=== PATIENT | female | born 1970 | race African-American/Black ===

== ENCOUNTER 2017-11-24 10:15 | Observation (INO) ==
[2017-11-24] MEDS ORDERED: ASPIRIN 325 MG TABLET PO STA (10:32)
[2017-11-24] MEDS ORDERED: NITROGLYCERIN SL 0.4 MG TABLET SL PRN (10:32)
[2017-11-24 10:51] LABS: Eosinophils # 0.2 10*3/uL (0.0-0.87); Eosinophils % 2.8 % (0.00-10.9); Hematocrit 41.1 VOL% (35.7-47.0); Hemoglobin 13.8 GM/DL (12.0-16.0); Immature Granulocytes % 0.2 %; Immature Granulocytes Absolute 0.01 #; Lymphocytes # 2.7 10*3/uL (1.4-4.0); Lymphocytes % 44.8 % (21.3-54.2); Mean Corpuscular HGB Conc 33.6 GM/DL (32-36); Mean Corpuscular Hemoglobin 28 PG (27-34); Mean Corpuscular Volume 84.2 FL (87-102); Mean Platelet Volume 9.7 FL (9.6-12.0); Monocytes # 0.5 10*3/uL (0.11-0.8); Monocytes % 8.7 % (1.7-12.7); Neutrophils # 2.7 10*3/uL (1.4-7.4); Neutrophils % 43.5 % (38.7-73.9); Platelet Count 386 T/CUMM (130-400); Red Blood Count 4.88 MC/CUMM (3.8-5.5); Red Cell Distribution Width 12.8 % (9.3-17.3); White Blood Count 6.1 T/CUMM (4-12)
[2017-11-24] MEDS ORDERED: ASPIRIN 325 MG TABLET ONE (10:58)
[2017-11-24] MEDS ORDERED: NITROGLYCERIN SL 0.4 MG TABLET SL ONE (11:14)
[2017-11-24 11:17] LABS: Calcium 8.6 MG/DL (8.5-10.1)
[2017-11-24 11:18] LABS: Osmolality,Calculated 273.7 MOS/KG (273-304); Potassium 3.4 MMOL/L (3.5-5.1)
[2017-11-24] MEDS ORDERED: MORPHINE 4 MG/1 ML VIAL IV PRN (12:30)
[2017-11-24] MEDS ORDERED: POTASSIUM CHLORIDE 20 MEQ TABLET PO PRN ×2 (12:30)
[2017-11-24] MEDS ORDERED: ACETAMINOPHEN 325 MG TABLET PO PRN (12:30)
[2017-11-24] MEDS ORDERED: ONDANSETRON 4 MG/2 ML VIAL IV PRN (12:30)
[2017-11-24 12:58] LABS: Risk Ratio 3.41; Thyroid Stimulating Hormone 3.73 uIU/ml (0.358-3.74); VLDL CHOLESTEROL 45.6 MG/DL
[2017-11-24] MEDS: ENOXAPARIN 40 MG/0.4 ML SYRINGE SUBCUT SCH (14:37)
[2017-11-24] MEDS: ASPIRIN EC 325 MG TABLET PO SCH (14:37)
[2017-11-24] MEDS: SODIUM CHLORIDE 0.45% 1,000 ML IV SCH (14:38)
[2017-11-24] MEDS ORDERED: ZALEPLON 5 MG CAPSULE PO SCH (21:00)
[2017-11-24] MEDS ORDERED: ROSUVASTATIN 20 MG TABLET PO SCH (21:00)
[2017-11-24] MEDS ORDERED: CYCLOBENZAPRINE 10 MG TABLET PO SCH (21:00)
[2017-11-24] MEDS: GABAPENTIN 400 MG CAPSULE PO SCH (21:07)
[2017-11-25] MEDS: SODIUM CHLORIDE 0.45% 1,000 ML IV SCH ×2 (00:51→10:24)
[2017-11-25 07:13] LABS: Potassium 3.8 MMOL/L (3.5-5.1)
[2017-11-25] MEDS: DILTIAZEM CD 240 MG CAPSULE PO SCH ×2 (10:24→11:08)
[2017-11-25] MEDS: PANTOPRAZOLE 40 MG TABLET PO SCH ×2 (10:25→11:08)
[2017-11-25] MEDS: GABAPENTIN 400 MG CAPSULE PO SCH (10:25)
[2017-11-25] MEDS: ASPIRIN EC 325 MG TABLET PO SCH ×2 (10:25→11:07)
[2017-11-25] MEDS: BISOPROLOL 5 MG TABLET PO SCH ×2 (10:25→11:07)
[2017-11-25] MEDS: ENOXAPARIN 40 MG/0.4 ML SYRINGE SUBCUT SCH (11:37)
[2017-11-25 12:19] VITALS: BP 116/74
== END 2017-11-25 13:56 | disposition home or self-care (01) ==
LOC: N.ED 10:15 → N.EDINP 10:15 → SUATTDRO 12:30 → N.EDINP 13:06 → N.TELEN 13:11
PROVIDERS: ADMIT Hospitalist; ATTEND Internal Medicine

== ENCOUNTER 2021-10-08 11:46 | Observation (INO) ==
[2021-10-08] MEDS ORDERED: NITROGLYCERIN SL 0.4 MG TABLET SL PRN (12:18)
[2021-10-08] MEDS ORDERED: ASPIRIN 325 MG TABLET PO STA (12:18)
[2021-10-08 12:20] LABS: Eosinophils # 0.1 10*3/uL (0.0-0.87); Eosinophils % 1.2 % (0.00-10.9); Hematocrit 38.9 VOL% (35.7-47.0); Hemoglobin 12.9 GM/DL (12.0-16.0); Immature Granulocytes % 0.4 %; Immature Granulocytes Absolute 0.02 #; Lymphocytes % 40.3 % (21.3-54.2); Mean Corpuscular HGB Conc 33.2 GM/DL (32-36); Mean Corpuscular Volume 85.9 FL (87-102); Mean Platelet Volume 10.1 FL (9.6-12.0); Monocytes % 6.6 % (1.7-12.7); Neutrophils % 51.5 % (38.7-73.9); Platelet Count 305 T/CUMM (130-400); Red Blood Count 4.53 MC/CUMM (3.8-5.5); Red Cell Distribution Width 12.6 % (9.3-17.3); White Blood Count 4.9 T/CUMM (4-12)
[2021-10-08 12:48] LABS: Bilirubin,Total 0.4 MG/DL (0.20-1.00); Calcium 9.5 MG/DL (8.5-10.1); Osmolality,Calculated 271.8 MOS/KG (273-304); Potassium 3.8 MMOL/L (3.5-5.1); Total Protein 7.9 G/DL (6.4-8.2)
[2021-10-08 13:52] LABS: INR 0.9; PT Patient Result 10.3 SECS (10.5-12.0)
[2021-10-08] MEDS ORDERED: KETOROLAC 30 MG/1 ML VIAL IM STA (14:02)
[2021-10-08] MEDS ORDERED: KETOROLAC 30 MG/1 ML VIAL ONE (14:02)
[2021-10-08] MEDS ORDERED: KETOROLAC 30 MG/1 ML VIAL IV STA ×2 (14:03→14:07)
[2021-10-08 14:07] LABS: Partial Thromboplastin Time 20.5 SECS (23.8-32.1)
[2021-10-08] MEDS ORDERED: ONDANSETRON 4 MG/2 ML VIAL IV PRN (17:03)
[2021-10-08] MEDS ORDERED: GLUCAGON 1 MG VIAL IM PRN (17:03)
[2021-10-08] MEDS ORDERED: DEXTROSE 10% 250 ML BAG IV PRN (17:03)
[2021-10-08] MEDS ORDERED: ACETAMINOPHEN 325 MG TABLET PO PRN (17:03)
[2021-10-08] MEDS: MORPHINE 2 MG/1 ML SYRINGE IV PRN (18:24)
[2021-10-08] MEDS ORDERED: ENOXAPARIN 40 MG/0.4 ML SYRINGE SUBCUT SCH (21:00)
[2021-10-08] MEDS ORDERED: ZALEPLON 5 MG CAPSULE PO SCH (21:00)
[2021-10-09] MEDS: MORPHINE 2 MG/1 ML SYRINGE IV PRN (00:30)
[2021-10-09 04:30] LABS: Eosinophils # 0.1 10*3/uL (0.0-0.87); Eosinophils % 1.9 % (0.00-10.9); Hemoglobin 11.6 GM/DL (12.0-16.0); Immature Granulocytes % 0.4 %; Immature Granulocytes Absolute 0.02 #; Lymphocytes # 2.2 10*3/uL (1.4-4.0); Lymphocytes % 45.8 % (21.3-54.2); Mean Corpuscular HGB Conc 31.4 GM/DL (32-36); Mean Corpuscular Volume 89.4 FL (87-102); Mean Platelet Volume 10.5 FL (9.6-12.0); Monocytes % 7.9 % (1.7-12.7); Platelet Count 292 T/CUMM (130-400); Red Blood Count 4.14 MC/CUMM (3.8-5.5); Red Cell Distribution Width 12.8 % (9.3-17.3); White Blood Count 4.8 T/CUMM (4-12)
[2021-10-09 05:03] LABS: Albumin 3.4 G/DL (3.4-5.0); Bilirubin,Total 0.4 MG/DL (0.20-1.00); Calcium 8.8 MG/DL (8.5-10.1); Osmolality,Calculated 276.7 MOS/KG (273-304); Potassium 3.8 MMOL/L (3.5-5.1); Risk Ratio 2.19; Thyroid Stimulating Hormone 2.52 uIU/ml (0.358-3.74); VLDL Cholesterol 22.2 MG/DL
[2021-10-09 12:20] VITALS: BP 114/79
== END 2021-10-09 12:15 | disposition home or self-care (01) ==
LOC: N.ED 11:46 → N.EDINP 11:46 → SUATTDRO 16:20 → N.EDINP 10-09 12:21
PROVIDERS: ADMIT Internal Medicine; ATTEND Internal Medicine